=== PATIENT | male | born 1965 | race Caucasian/White ===

== ENCOUNTER 2024-09-28 22:32 | Inpatient (IN) | payer BC ==
[2024-09-28] MEDS ORDERED: NA CHLORIDE 0.9% 1,000 ML ONE (23:44)
[2024-09-29 00:16] LABS: Absolute Eosinophils 0.1 K/uL (0-0.5); Absolute Monocytes 1.2 K/uL (0.1-1.3); Absolute Neutrophil 7.1 K/uL (1.8-8.0); Basophils % 0.5 % (0-1.3); Eosinophils % 0.9 % (0-4.4); Hematocrit 48.7 % (39.6-49.0); Hemoglobin 16.6 g/dL (13.6-17.9); MCHC 34.1 g/dL (32.0-36.0); MCV 102.5 fL (80-100); Monocytes % 11.4 % (3.3-12.3); Neutrophils % 68.2 % (41.7-73.7); Nucleated Red Blood Cells % 0.2 % (0-0); Platelets 251 thou/uL (152-406); RBC Red Blood Cell Count 4.75 M/uL (4.33-5.43); Red Cell Distribution Width 13.5 % (12.1-15.2)
[2024-09-29 00:33] LABS: Albumin 3.5 g/dL (3.4-5.0); Albumin/Globulin Ratio 0.9 (1.1-1.8); Anion Gap 16.7 mEq/L (5.0-15.0); Bilirubin Direct 0.2 mg/dL (0-0.2); Bilirubin Indirect, Calculated 0.3 mg/dL (0.2-0.8); Bilirubin Total 0.5 mg/dL (0.2-1.0); Globulin 3.8 g/dL (2.3-3.5); Magnesium 2.3 mg/dL (1.6-2.4); Potassium 3.7 mEq/L (3.5-5.1); Protein, Total 7.3 g/dL (6.4-8.2); Troponin High Sensitivity 22.3 pg/mL (<58.9)
[2024-09-29] MEDS ORDERED: NA CHLORIDE 0.9% 2,000 ML ONE (00:58)
--- NOTE | 2024-09-29 02:08 | RAD REPORT ---
EXAM DESCRIPTION: XR CHEST 1 VIEW 09/29/2024 1:46 AM CDT CLINICAL HISTORY: 58 years, Male, Chest pain. COMPARISON: None. FINDINGS: 1 view of the chest (AP portable projection) was obtained. No prior films are available at this hero e for comparison. There is mild hyperinflation. Mediastinum: The cardiomediastinal silhouette appears normal in size and shape. Lungs: No areas of consolidations or masses are identified. Heart: The heart is in the upper normal size perhaps accentuated by the presence of bilateral pericar dial fat pad. Thoracic aorta: The thoracic aorta demonstrate to be mildly tortuous. Pulmonary vasculature: The pulmonary vasculature is normal in distribution. Pleura: The costophrenic angles demonstrate to be sharp. Osseous structures: The bony structures demonstrate to be within normal limits. Other: None. IMPRESSION: No acute cardiopulmonary disease seen. Mild hyperinflation. Electronically signed by: Jaime Silvestre MD 09/29/2024 01:58 AM CDT Due to temporary technical issues with the PACS/[employer] reporting system, reports are being joel d by the in-house radiologist without review as a courtesy to ensure prompt reporting the interpreting radiologist is fully responsible for the content of the report. Transcribed Date/Time: 09/29/2024 2:07 AM
--- NOTE | 2024-09-29 02:09 | EDPHYS ---
Physician Documentation [facility] Name: Garry Bond Age: 58 yrs Sex: Male : 1965 Arrival Date: 09/28/2024 Time: 22:32 Bed 5 Private MD: ED Physician Cristina Montgomery HPI: 09/29 00:44 This 58 yrs old White Male presents to ER via Ambulatory with complaints of Back Pain, sp3 Chest Pain, Weakness, Syncope, Fall Injury, Shortness Of Breath. 00:44 58-year-old male with history of hypertension, hyper lipidemia, alcoholism, chronic sp3 renal insufficiency with left nephrectomy performed due to renal cancer years ago now presents to the ED with chief complaint hypotension, generalized weakness and mild chest pain/shortness of breath. Symptoms have been occurring for several days and worsened today. Patient did have alcohol today which she states was "1 drink". He drinks 4-5 drinks a day. Patient being very vague with the symptoms. Review of systems negative for headache, trauma, vomiting, full syncope, fever, or any other signs or symptoms on ROS at this time.. Historical: - Allergies: 09/28 22:50 No Known Allergies; lg3 - Home Meds: 22:50 losartan 100 mg oral tablet [Active]; atorvastatin 10 mg oral tablet [Active]; lg3 fenofibrate oral [Active]; Farxiga 5 mg oral tablet daily [Active]; spironolactone Oral [Active]; metoprolol tartrate 50 mg Oral tablet [Active]; gabapentin 100 mg oral capsule [Active]; - PMHx: 22:50 Hypertensive disorder; Hypercholesterolemia; renal disease; lg3 - PSHx: 22:50 right nephrectomy; right knee; right shoulder; lg3 - Immunization history:: Adult Immunizations up to date. - Infectious Disease History:: Denies. - Social history:: Smoking status: Patient reports use of chewing tobacco. Patient uses alcohol, on a daily basis. patient/guardian reports chronic longstanding heavy alcohol consumption. ROS: 09/29 00:45 Constitutional: Negative for fever, chills, and weight loss, Eyes: Negative for injury, sp3 pain, redness, and discharge, Neck: Negative for injury, pain, and swelling, Respiratory: Negative for shortness of breath, cough, wheezing, and pleuritic chest pain, Back: Negative for injury and pain, Skin: Negative for injury, rash, and discoloration, All other systems are negative, Exam: 00:46 Constitutional: This is a well developed, well nourished patient who is awake, alert, sp3 and in no acute distress. Head/Face: Normocephalic, atraumatic. Eyes: Pupils equal round and reactive to light, extra-ocular motions intact. Lids and lashes normal. Conjunctiva and sclera are non-icteric and not injected. Cornea within normal limits. Periorbital areas with no swelling, redness, or edema. ENT: Nares patent. No nasal discharge, no septal abnormalities noted. External auditory canals are clear. Oropharynx with no redness, swelling, or masses, exudates, or evidence of obstruction, uvula midline. Mucous membranes moist. Neck: Trachea midline, no thyromegaly or masses palpated, and no cervical lymphadenopathy. Supple, full range of motion without nuchal rigidity, or vertebral point tenderness. No Meningismus. Chest/axilla: Normal chest wall appearance and motion. Nontender with no deformity. No lesions are appreciated. Respiratory: Lungs have equal breath sounds bilaterally, clear to auscultation and percussion. No rales, rhonchi or wheezes noted. No increased work of breathing, no retractions or nasal flaring. Abdomen/GI: Soft, non-tender, with normal bowel sounds. No distension or tympany. No guarding or rebound. No evidence of tenderness throughout. Back: No spinal tenderness. No costovertebral tenderness. Full range of motion. 00:52 Constitutional: The patient appears Patient intoxicated. Blood pressure remains in the sp3 50s to 60s systolic but he appears to be perfusing clinically in terms of capillary refill. Patient is not tachycardic he does not appear to be in shock. Vital Signs: 09/28 22:45 BP 62 / 51; Pulse 96; Resp 16 S; Temp 98.1(O); Pulse Ox 97% on R/A; Weight 90.72 kg lg3 (R); Height 5 ft. 9 in. (R); 23:16 BP 58 / 48; Pulse 92; Resp 18; Temp 98.2; Pulse Ox 95% ; Weight 90.72 kg; Height 5 ft. hw 9 in. ; 23:48 BP 57 / 43; Pulse 87; Resp 16 S; Pulse Ox 97% on R/A; lg3 09/29 01:06 BP 83 / 57; Pulse 83; Resp 18; Pulse Ox 98% ; vc1 01:41 BP 88 / 62; Pulse 84; Resp 20; Pulse Ox 100% ; vc1 04:55 BP 109 / 79; Pulse 90; Resp 18; Pulse Ox 96% ; vc1 09/28 23:16 Body Mass Index 29.53 (90.72 kg, 175.26 cm) hw MDM: 09/28 23:00 Medical Screening Exam initiated sp3 09/29 00:52 Data reviewed: vital signs, nurses notes, lab test result(s), EKG, radiologic studies. 3 ED course: 58-year-old male with single kidney with generalized weakness, hypotension and alcohol use. Family reports possible seizure/shaking episode but no history of seizures in the past. Differential diagnosis includes dehydration, renal failure, electrolyte imbalance, other intracranial pathology, ACS, among others. Workup include CT scan of the head, EKG, chest x-ray, labs, UA and general supportive care. Creatinine is elevated and patient is in acute on chronic renal failure. Patient's blood pressure remains low and we will consider pressors if indicated.. 02:08 ED course: Patient blood pressure now significantly improved at 90 systolic. Given the 3 situation of single kidney and acute renal failure with soft blood pressure, will place patient in the intensive care unit.. 09/28 23:00 Order name: Basic Metabolic Panel; Complete [facility]: 00:38 [facility] 09/28 23:00 Order name: CBC with Diff; Complete Time: 00:38 [facility] 09/28 23:00 Order name: LFT's; Complete Time: 00:38 [facility] 09/28 23:00 Order name: Magnesium; Complete Time: 00:38 [facility] 09/28 23:00 Order name: NT PRO-BNP; Complete Time: 00:38 [facility] 09/28 23:00 Order name: PT-INR [facility] 09/28 23:00 Order name: Troponin HS; Complete Time: 00:38 [facility] 09/28 23:24 Order name: Lipase; Complete Time: 00:38 [facility] 09/28 23:24 Order name: Lactate w/ 2H reflex if indic.; Complete Time: 00:38 [facility] 09/28 23:24 Order name: Blood Culture Adult (2) sp3 09/29 00:37 Order name: Ghost Lactate-NO COLLECT Timer EDMS 09/29 02:56 Order name: Lactate w/ 2H reflex if indic. EDMS 09/29 02:56 Order name: Magnesium EDMS 09/29 02:56 Order name: Phosphorus EDMS 09/29 02:56 Order name: Urinalysis w/ reflexes EDMS 09/29 02:56 Order name: Basic Metabolic Panel EDMS 09/29 02:56 Order name: Basic Metabolic Panel EDMS 09/29 02:56 Order name: CBC with Automated Diff EDMS 09/29 02:56 Order name: CBC with Automated Diff EDMS 09/29 02:56 Order name: Lipid Profile EDMS 09/29 02:56 Order name: Lipid Profile EDMS 09/29 04:55 Order name: Lactate Sepsis 2 HR Follow-up EDMS 09/28 23:51 Order name: Chest Single View EDMS 09/29 00:54 Order name: CT Head Brain wo Cont sp3 09/29 00:55 Order name: CT Chest Abdomen Pelvis W/O Contrast sp3 09/29 02:57 Order name: Renal Ultrasound-Complete EDMS 09/28 23:00 Order name: EKG; Complete Time: 23:52 sp3 09/28 23:00 Order name: Cardiac monitoring; Complete Time: 23:32 sp3 09/28 23:00 Order name: EKG - Nurse/Tech; Complete Time: 23:32 sp3 09/28 23:00 Order name: IV Saline Lock; Complete Time: 23:32 sp3 09/28 23:00 Order name: Labs collected and sent; Complete Time: 23:32 sp3 09/28 23:00 Order name: O2 Per Protocol; Complete Time: 23:32 sp3 09/28 23:00 Order name: O2 Sat Monitoring; Complete Time: 23:32 sp3 Administered Medications: 09/28 23:51 Drug: NS 0.9% IV 1000 ml IV at 1 bolus Per protocol; to be given as a bolus over 60 lg3 minutes Route: IV; Rate: 1 bolus; Site: right antecubital; 09/29 01:00 Follow up: IV Status: Completed infusion; IV Intake: 1000ml vc1 01:05 Drug: NS 0.9% IV (20 ml/kg) 20 ml/kg IV at 2 bolus once; to be given as a bolus over 90 vc1 minutes Route: IV; Rate: 2 bolus; Site: right antecubital; 02:30 Follow up: IV Status: Completed infusion; IV Intake: 2000ml vc1 03:46 Drug: Banana Bag - (Multivitamin IV 1 amp, NS 0.9% IV 1000 ml, Thiamine IV 100 mg, vc1 foLIC Acid IVPB 1 mg) IV at calculated rate once Route: IV; Rate: bolus; Site: right antecubital; 05:05 Follow up: IV Status: Completed infusion; IV Intake: 1000ml vc1 Disposition Summary: 09/29/24 02:08 Hospitalization Ordered Notes: Hospitalization Status: Inpatient Admission sp3 Location: Intensive Care Unit sp3 Condition: Stable sp3 Problem: an acute exacerbation sp3 Symptoms: have worsened sp3 Bed/Room Type: Standard sp3 Provider: Juan Hunt(09/29/24 02:51) sp3 Room Assignment: -(09/29/24 04:29) cg Diagnosis - Acute renal failure and single kidney patient, dehydration, lactic acidosis, sp3 generalized weakness, near syncope Forms: - Medication Reconciliation Form sp3 - SBAR form sp3 - Leadership Thank You Letter sp3 Critical care time excluding procedures: 02:12 Critical care time: Bedside Care: 20 minutes, Consultation: 10 minutes, Family sp3 Intervention: 10 minutes. Total time: 40 minutes Signatures: Dispatcher [employer] Kaylan Post RN RN cg Mckayla Persaud RN RN lg3 Cristina Montgomery MD MD sp3 Xuan Pathak RN RN vc1 Corrections: (The following items were deleted from the chart) 09/28 22:55 22:50 Home Meds: ESRD; lg3 lg3 22:55 22:50 PMHx: Hypertensive disorder; lg3 lg3 09/29 00:29 09/28 23:52 Chest Single View+RAD.RAD.BRZ ordered. [facility] EDMS 09/29 02:51 02:08 Prince Anahi sp3 sp3 04:29 02:08 sp3 cg
--- NOTE | 2024-09-29 02:09 | ER ---
Nurse's Notes [facility] Name: Garry Bond Age: 58 yrs Sex: Male : 1965 Arrival Date: 09/28/2024 Time: 22:32 Bed 5 Private MD: Diagnosis: Acute renal failure and single kidney patient, dehydration, lactic acidosis, generalized weakness, near syncope Presentation: 09/28 22:45 Chief complaint: Patient states: center CP radiating to back starting at dinner. when lg3 trying to stand up he acted like he was going to pass out. nausea and vomiting X3 days. urinating blood Spouse and/or significant other states: history of ETOH abuse. daily intake. nausea/vomiting X3 days. blood in urine for unknown amount of time. at dinner pt complaint of center CP radiating to back with headache. Coronavirus screen: At this time, unable to obtain information related to travel outside the [place] Ebola Screen: No symptoms or risks identified at this time. Initial Sepsis Screen: Does the patient meet any 2 criteria? No. Patient's initial sepsis screen is negative. Does the patient have a suspected source of infection? No. Patient's initial sepsis screen is negative. Risk Assessment: Do you want to hurt yourself or someone else? Patient reports no desire to harm self or others. Onset of symptoms is unknown. 22:45 Method Of Arrival: Ambulatory lg3 22:45 Acuity: VESTA 2 lg3 Triage Assessment: 22:50 General: Appears in no apparent distress. distressed, Behavior is calm, cooperative, lg3 flat, Smells of alcohol. Pain: Complains of pain in head and chest. EENT: No deficits noted. No signs and/or symptoms were reported regarding the EENT system. Neuro: [place]o Agitation-Sedation Scale (RASS): -1 Drowsy Level of Consciousness is awake, confused, Oriented to person, place, time, situation, Reports dizziness, headache weakness. Cardiovascular: No deficits noted. Reports chest pain, Heart tones S1 S2 present Capillary refill < 3 seconds Clubbing of nail beds is absent JVD is absent Patient's skin is warm and dry. Rhythm is sinus rhythm. Respiratory: No deficits noted. Airway is patent Respiratory effort is even, unlabored, Respiratory pattern is regular, symmetrical. GI: Abdomen is round non-distended, obese. : Reports blood in urine. Derm: No deficits noted. Skin is intact, is healthy with good turgor, Skin is dry, Skin is normal, Skin temperature is warm. Musculoskeletal: Circulation, motion, and sensation intact. Range of motion: intact in all extremities. Historical: - Allergies: 22:50 No Known Allergies; lg3 - Home Meds: 22:50 losartan 100 mg oral tablet [Active]; atorvastatin 10 mg oral tablet [Active]; lg3 fenofibrate oral [Active]; Farxiga 5 mg oral tablet daily [Active]; spironolactone Oral [Active]; metoprolol tartrate 50 mg Oral tablet [Active]; gabapentin 100 mg oral capsule [Active]; - PMHx: 22:50 Hypertensive disorder; Hypercholesterolemia; renal disease; lg3 - PSHx: 22:50 right nephrectomy; right knee; right shoulder; lg3 - Immunization history:: Adult Immunizations up to date. - Infectious Disease History:: Denies. - Social history:: Smoking status: Patient reports use of chewing tobacco. Patient uses alcohol, on a daily basis. patient/guardian reports chronic longstanding heavy alcohol consumption. Screenin/12 01:00 Clinical [place] Withdrawal Assessment for Alcohol, revised (WA-Ar):. [facility] ED vc1 Fall Risk Assessment (Adult) History of falling in the last 3 months, including since admission No falls in past 3 months (0 pts) Confusion or Disorientation Yes (5 pts) Intoxicated or Sedated Yes (3 pts) Impaired Gait Yes (1 pt) Mobility Assist Device Used No (0 pt) Altered Elimination Yes (1 pt) Score/Fall Risk Level 3 or more points = High Risk Oriented to surroundings, Maintained a safe environment, Educated pt \T\ family on fall prevention, incl call for assistance when getting out of bed, Hourly rounding (assess needs \T\ fall precautionary measures) done. Abuse screen: Denies threats or abuse. Nutritional screening: No deficits noted. Tuberculosis screening: No symptoms or risk factors identified. 01:00 Clinical [place] Withdrawal Assessment for Alcohol, revised (CIWA-Ar): vc1 Nausea/Vomitin - No nausea or vomiting Headache: 0 - Not present Paroxysmal Sweats: 1 - Barely perceptible sweating, palms moist Anxiety: 4 - Moderately anxious, guarded Agitation: 1 - Somewhat more than normal activity Tremor: 1 - Not visible, but can be felt at fingertips Auditory Disturbances: 0 - Not present Visual Disturbances: 0 - Not present Tactile Disturbances: 0 - None Orientation and Clouding of Sensorium: 0 - Oriented and can do serial additions Total Score: < 10 Very mild withdrawal. Assessment: 01:00 General: Appears in no apparent distress. uncomfortable, well groomed, well developed, vc1 Behavior is cooperative. Pain: Denies pain. Neuro: Level of Consciousness is awake, alert, obeys commands, Oriented to person, place, time, situation, Appropriate for age. Cardiovascular: Capillary refill < 3 seconds Patient's skin is warm and dry. Respiratory: Airway is patent Respiratory effort is even, unlabored, Respiratory pattern is regular, symmetrical, Breath sounds are clear bilaterally. GI: No deficits noted. No signs and/or symptoms were reported involving the gastrointestinal system. : No deficits noted. No signs and/or symptoms were reported regarding the genitourinary system. EENT: No deficits noted. No signs and/or symptoms were reported regarding the EENT system. Derm: Skin is intact, is healthy with good turgor, Skin is dry, Skin is normal, Skin temperature is warm. Musculoskeletal: No deficits noted. No signs and/or symptoms reported regarding the musculoskeletal system. 01:42 Reassessment: Patient appears in no apparent distress at this time. No changes from vc1 previously documented assessment. Patient and/or family updated on plan of care and expected duration. Pain level reassessed. 05:05 Reassessment: Patient appears in no apparent distress at this time. No changes from vc1 previously documented assessment. Patient and/or family updated on plan of care and expected duration. Pain level reassessed. Vital Signs: 09/28 22:45 BP 62 / 51; Pulse 96; Resp 16 S; Temp 98.1(O); Pulse Ox 97% on R/A; Weight 90.72 kg lg3 (R); Height 5 ft. 9 in. (R); 23:16 BP 58 / 48; Pulse 92; Resp 18; Temp 98.2; Pulse Ox 95% ; Weight 90.72 kg; Height 5 ft. hw 9 in. ; 23:48 BP 57 / 43; Pulse 87; Resp 16 S; Pulse Ox 97% on R/A; lg3 09/29 01:06 BP 83 / 57; Pulse 83; Resp 18; Pulse Ox 98% ; vc1 01:41 BP 88 / 62; Pulse 84; Resp 20; Pulse Ox 100% ; vc1 04:55 BP 109 / 79; Pulse 90; Resp 18; Pulse Ox 96% ; vc1 09/28 23:16 Body Mass Index 29.53 (90.72 kg, 175.26 cm) ED Course: 09/28 22:34 Patient arrived in ED. jj6 22:49 Triage completed. lg3 22:50 Arm band placed on right wrist. lg3 22:59 Cristina Montgomery MD is Attending Physician. sp3 23:16 Inserted saline lock: 20 gauge in right antecubital area, using aseptic technique. hw Blood collected. Flushed with 10 mL NS. 23:16 EKG done, by ED staff, reviewed by Cristina Montgomery MD. 09/29 00:12 Chest Single View In Process Unspecified. EDMS 01:00 Report received from SUKHWINDER Block. vc1 01:00 Patient has correct armband on for positive identification. Bed in low position. Side vc1 rails up X2. Adult w/ patient. discount clerk on. Pulse ox on. NIBP on. Placed in trendelenberg. 01:00 Provided Education on: plan of care. vc1 01:41 CT Head Brain wo Cont In Process Unspecified. EDMS 01:41 CT Chest Abdomen Pelvis W/O Contrast In Process Unspecified. EDMS 01:41 Xuan Pathak, SUKHWINDER is Primary Nurse. vc1 02:07 Prince Christian MD is Hospitalizing Provider. sp3 02:51 Hospitalizing Provider role handed off by Prince Christian MD sp3 02:51 Juan Hunt MD is Hospitalizing Provider. sp3 05:41 No provider procedures requiring assistance completed. Patient admitted, IV remains in vc1 place. Administered Medications: 09/28 23:51 Drug: NS 0.9% IV 1000 ml IV at 1 bolus Per protocol; to be given as a bolus over 60 lg3 minutes Route: IV; Rate: 1 bolus; Site: right antecubital; 09/29 01:00 Follow up: IV Status: Completed infusion; IV Intake: 1000ml vc1 01:05 Drug: NS 0.9% IV (20 ml/kg) 20 ml/kg IV at 2 bolus once; to be given as a bolus over 90 vc1 minutes Route: IV; Rate: 2 bolus; Site: right antecubital; 02:30 Follow up: IV Status: Completed infusion; IV Intake: 2000ml vc1 03:46 Drug: Banana Bag - (Multivitamin IV 1 amp, NS 0.9% IV 1000 ml, Thiamine IV 100 mg, vc1 foLIC Acid IVPB 1 mg) IV at calculated rate once Route: IV; Rate: bolus; Site: right antecubital; 05:05 Follow up: IV Status: Completed infusion; IV Intake: 1000ml vc1 Medication: 01:25 VIS not applicable for this client. vc1 Intake: 01:00 IV: 1000ml; Total: 1000ml. vc1 02:30 IV: 2000ml; Total: 3000ml. vc1 05:05 IV: 1000ml; Total: 4000ml. vc1 Outcome: 02:08 Decision to Hospitalize by Provider. sp3 05:41 Admitted to ICU accompanied by nurse, accompanied by tech, family with patient, via vc1 stretcher, room -5, on monitor, 05:41 Condition: stable 05:41 Instructed on the need for admit, 05:43 Patient left the ED. vc1 Signatures: Dispatcher [employer] EDMS Mckayla Persaud RN RN lg3 Cristina Montgomery MD MD sp3 Shani Harmon6 Xuan Pathak RN RN vc1 [address] Corrections: (The following items were deleted from the chart) 09/28 22:55 22:50 Home Meds: ESRD; lg3 lg3 22:55 22:50 PMHx: Hypertensive disorder; lg3 lg3 23:01 22:45 Chief complaint: Patient states: center CP radiating to back starting at dinner. lg3 when trying to stand up he acted like he was going to pass out. nausea and vomiting X3 days. urinating blood lg3
[2024-09-29] MEDS ORDERED: ONDANSETRON 4 MG/2 ML VIAL IV PRN (02:52)
[2024-09-29] MEDS ORDERED: FOLIC ACID 5 MG/ML VIAL ONE (03:39)
[2024-09-29] MEDS ORDERED: MULTIVITAMINS 10 ML VIAL (INJ) IV ONE (03:39)
[2024-09-29] MEDS ORDERED: THIAMINE 200 MG/2 ML INJ ONE (03:39)
[2024-09-29] MEDS ORDERED: NA CHLORIDE 0.9% 1,000 ML ONE (03:40)
[2024-09-29 04:45] LABS: PT Prothrombin Time 10.8 SECONDS (10-13.0); Protime INR 0.94
[2024-09-29 04:51] LABS: Magnesium 1.8 mg/dL (1.6-2.4); Phosphorus 3.1 mg/dL (2.5-4.9)
[2024-09-29] MEDS: NA CHLORIDE 0.9% 1,000 ML IV SCH (06:06)
[2024-09-29 06:17] VITALS: BMI 29.5
--- NOTE | 2024-09-29 06:42 | RAD REPORT ---
EXAM DESCRIPTION: CT of the head without contrast CLINICAL HISTORY: WEAKNESS COMPARISON: None available TECHNIQUE: Axial CT of the head obtained from the skull apex to the skull base without contrast. This exam was performed according to our departmental dose-optimization program, which includes automated exposure control, adjustment of the mA and/or kV according to patient size and/or use of it erative reconstruction technique. FINDINGS: No acute intracranial hemorrhage identified. No mass, mass effect, midline shift, or abnormal extra-a xial fluid collection. No CT evidence of acute ischemic change identified, however, MRI is more sensitive in the assessment of acute ischemia. Ventricular system and sulcal spaces are normal in s ize. [place] cisterna magna is incidentally noted. Basilar cisterns are patent. Intracranial atherosclerosis. Visualized orbits and globes show no acute abnormality. No skull fracture identified. The visuali zed paranasal sinuses and the mastoid air cells are relatively well aerated. IMPRESSION: No acute intracranial abnormality on noncontrast CT. Electronically signed by: Brittny Holland MD 09/29/2024 04:02 AM T Due to temporary technical issues with the PACS/[employer] reporting system, reports are being joel d by the in-house radiologist without review as a courtesy to ensure prompt reporting the interpreting radiologist is fully responsible for the content of the report. Transcribed Date/Time: 09/29/2024 6:42 AM
--- NOTE | 2024-09-29 06:43 | RAD REPORT ---
CLINICAL HISTORY: Weakness syncope hypotension. COMPARISON: XR Chest 09/28/2024. TECHNIQUE: CT CHEST ABDOMEN PELVIS WITHOUT IV CONTRAST on 09/29/2024 12:55 AM CDT This exam was performed according to our departmental dose-optimization program, which includes autom ated exposure control, adjustment of the mA and/or kV according to patient size and/or use of iterative reconstruction technique. FINDINGS: Chest: The heart is normal in size. There is no pericardial effusion. Intrathoracic lymph nodes are n ot enlarged. There is no pleural effusion, pleural thickening or pneumothorax. Central airways are patent. Lungs a re clear with no consolidation, mass or interstitial lung disease. Abdomen: The liver is normal in appearance. There is no biliary dilatation. Gallbladder is normal in appearance. The pancreas and spleen are normal in appearance. Left adrenal gland and kidney are normal. Right adrenal gland and kidney are absent. Abdominal aorta is normal in course and caliber without aneurysm. There is no free air. There is no r etroperitoneal adenopathy. Pelvis: There is minimal left colonic diverticulosis. Urinary bladder is unremarkable. There is no fr ee fluid. Appendix is normal. Skeleton: There are no acute osseous findings. No suspicious bony lesions. IMPRESSION: No acute process. Electronically signed by: Shaka Castellon MD 09/29/2024 04:32 AM CDT RP Due to temporary technical issues with the PACS/[employer] reporting system, reports are being joel d by the in-house radiologist without review as a courtesy to ensure prompt reporting the interpreting radiologist is fully responsible for the content of the report. Transcribed Date/Time: 09/29/2024 6:42 AM
[2024-09-29 08:00] LABS: Absolute Eosinophils 0.1 K/uL (0-0.5); Absolute Monocytes 0.5 K/uL (0.1-1.3); Absolute Neutrophil 3.4 K/uL (1.8-8.0); Basophils % 0.7 % (0-1.3); Eosinophils % 1.2 % (0-4.4); Hematocrit 43.4 % (39.6-49.0); Hemoglobin 14.9 g/dL (13.6-17.9); Lymphocytes % 19.9 % (15.3-44.8); MCH 35.3 pg (27.0-35.0); MCHC 34.3 g/dL (32.0-36.0); MCV 102.9 fL (80-100); MPV 7.5 fL (7.6-11.3); Monocytes % 10.8 % (3.3-12.3); Neutrophils % 67.4 % (41.7-73.7); Nucleated Red Blood Cells % 0.1 % (0-0); Platelets 151 thou/uL (152-406); RBC Red Blood Cell Count 4.22 M/uL (4.33-5.43); Red Cell Distribution Width 13.6 % (12.1-15.2)
--- NOTE | 2024-09-29 08:17 | RAD REPORT ---
EXAMINATION: US RENAL CLINICAL INDICATION: Acute renal insufficiency TECHNIQUE: Real-time ultrasonography of the kidneys performed. COMPARISON: CT abdomen September 29, 2024 FINDINGS: Right nephrectomy 2.2 cm cystic mass extends off of the lower pole left kidney. It contains low level echoes. The left kidney measures 11 cm with a normal echotexture. No hydronephrosis No gross abnormality bladder. IMPRESSION: Right nephrectomy 2.2 cm cystic mass left kidney containing low level echoes likely a benign complex cyst. Follow-up radha in 3 months recommended for reevaluation
[2024-09-29 08:20] LABS: Albumin 2.7 g/dL (3.4-5.0); Albumin/Globulin Ratio 0.9 (1.1-1.8); Bilirubin Total 0.5 mg/dL (0.2-1.0); Globulin 3.1 g/dL (2.3-3.5); Protein, Total 5.8 g/dL (6.4-8.2)
[2024-09-29] MEDS: HEPARIN 5000 UNIT/ML 1 ML VIAL SQ SCH (08:41)
[2024-09-29] MEDS ORDERED: GABAPENTIN 100 MG CAP PO PRN (08:52)
[2024-09-29] MEDS: METOPROLOL TAR 50 MG TAB PO SCH (09:00)
[2024-09-29 14:01] LABS: UR PROTEIN 33.6 mg/dL (<11.9)
[2024-09-29 14:02] LABS: Specific Gravity 1.011 (1.005-1.030); Sqamous Epithelial None Seen /HPF (None Seen); Urine Bacteria None Seen /HPF (<20); Urine Bilirubin NEGATIVE (Negative); Urine Blood 1+ (Negative); Urine Clarity Clear (Clear); Urine Color Light-Yellow (Yellow); Urine Culture Reflex Order NOT NEEDED; Urine Glucose 3+ (Negative); Urine Ketones NEGATIVE (Negative); Urine Micro Reflex YN NO BILL MICROSCOPIC; Urine Mucus Slight /HPF (None Seen); Urine Nitrite NEGATIVE (Negative); Urine Protein NEGATIVE (Negative); Urine RBC <5 /HPF (None Seen); Urine Urobilinogen Normal (Normal); Urine WBC <5 /HPF (<5); Urine pH 5.5 (5.0-7.0)
--- NOTE | 2024-09-29 16:10 | P.HP ---
Patient History Date of Service: 09/29/24 Reason for admission: DEHYDRATION, SYNCOPE History of Present Illness: GEORGE HAS HAD RENAL CANCER WITH REMOVAL OR R KIDNEY A FEW YEARS AGO. HE DRINKS HEAVY BURBON WITH COKE DAILY. HE HAS HAD NAUSEA, VOMITING AND DIARRHEA FOR 4 DAYS. HE HAD SYNCOPE AT HOME AND BROUGHT HIM HERE. BP WAS IN 50S ON ADMISSION. HE WAS GIVEN 3 LT OF FLUID IN ER AND THEN 100 ML PER HOUR. HE IS STABLE. HE ALREADY WANTS TO GO HOME BUT HE CAN'T. I HAD LONG DISCUSSION ABOUT ALCOHOL ABUSE BUT HE DOES NOT WANT TO QUIT. Allergies No Known Allergies Allergy (Unverified 09/29/24 06:02) Home medications list reviewed: Yes Home Medications: Atorvastatin Calcium [Lipitor] 10 mg PO BEDTIME 09/29/24 Dapagliflozin Propanediol [Farxiga] 5 mg PO DAILY 09/29/24 Fenofibrate,Micronized [Fenofibrate] 67 mg PO DAILY 09/29/24 Gabapentin 100 mg PO TID PRN 09/29/24 Losartan Potassium 100 mg PO DAILY 09/29/24 Metoprolol Tartrate [Lopressor] 50 mg PO BID 09/29/24 Spironolactone [Aldactone] 25 mg PO DAILY 09/29/24 - Past Medical/Surgical History Has patient received pneumonia vaccine in the past: No Diabetic: No -: hypertension -: one kidney -: right kidney removed cancer 2020 -: kidney removed 2020 -: right shoulder surgery -: right knee surgery - Family History Mother -: Cancer Father -: Cancer Notes: dementia - Social History Smoking Status: Never smoker Alcohol use: Yes CD- Drugs: No Caffeine use: Yes Place of Residence: Home Review of Systems 10-point ROS is otherwise unremarkable Physical Examination - Vital Signs Temperature: 97.5 F Blood Pressure: 107/72 Pulse: 99 Respirations: 18 Pulse Ox (%): 96 - Physical Exam General: Mild distress HEENT: Atraumatic, PERRLA, Mucous membr. moist/pink, EOMI, Sclerae nonicteric Neck: Supple, 2+ carotid pulse no bruit, No LAD, Without JVD or thyroid abnormality Respiratory: Clear to auscultation bilaterally, Normal air movement Cardiovascular: Regular rate/rhythm, Normal S1 S2 Gastrointestinal: Normal bowel sounds, No tenderness Musculoskeletal: No tenderness Integumentary: No rashes Neurological: Normal gait, Normal speech, Normal strength at 5/5 x4 extr, Normal tone, Normal affect Lymphatics: No axilla or inguinal lymphadenopathy - Studies Laboratory Data (last 24 hrs) 09/28/24 09/28/24 23:33 23:33 WBC 10.30 Hgb 16.6 Hct 48.7 Plt Count 251 Sodium 130 L Potassium 3.7 BUN 47 H Creatinine 4.89 H Glucose 104 Magnesium 2.3 Total Bilirubin 0.5 AST 30 ALT 23 Alkaline Phosphatase 63 Lipase 125 H Assessment and Plan - Problems (Diagnosis) (1) Acute renal insufficiency Current Visit: Yes Status: Acute Plan: HE HAS ONE KIDNEY THAT IS L SIDE. HE DRINKS HEAVY IN ADDITION TO RECENT VIRAL GASTROENTERITIS. RENAL FUNCTION SHOULD IMPROVE. HE MAY GO HOME IN TWO DAYS. IV CONTINUE. (2) History of renal cell cancer Current Visit: Yes Status: Chronic (3) CKD stage 3a, GFR 45-59 ml/min Current Visit: Yes Status: Chronic Plan: BASELINE ABOUT 1.5 AT OFFICE. FOLLOWING IS HIS HISTORY. 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 GARCIA NEG EXCEPT RENAL CELL CANCER. Hide 2020 Anemia [D64.9] 2020 Elevated serum creatinine [R79.89] 2020 Elevated ferritin [R79.89] 2020 Renal mass [N28.89] r side kidney removed. r side kidney removed. 2020 Renal cell cancer [C64.9 0.4] LIVER METS RULED OUT BY DR. THOMPSON. LIVER METS RULED OUT BY DR. THOMPSON. 2020 Varicose vein of leg [I83.90] 2022 Edema [R60.9] AMLODIPINE AMLODIPINE 2022 CKD (chronic kidney disease) stage 3, GFR 30-59 ml/min [N18.30 0.1] baseline 1.53 baseline 1.[address] [R93.1] 90th percentile 90th percentile (4) Alcohol abuse Current Visit: Yes Status: Acute Plan: HE DOES NOT WANT TO QUIT. I AND URGED HIM AGAIN TO GET HELP. - Advance Directives Does patient have a Living Will: No Does patient have a Durable POA for Healthcare: No
[2024-09-29] MEDS: SODIUM BICARB 325 MG TAB PO SCH (20:26)
--- NOTE | 2024-09-30 02:32 | CON ---
Date of Consultation: 09/29/2024 Chief Complaint: Acute kidney injury. 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 The patient previously underwent a solitary kidney due to previous nephrectomy, and nephrectomy was done for renal cell carcinoma. The patient has had close followup with urologist. On admission on September 28, creatinine level was up to 4.89 and today is 3.601, BUN is 39. There is metabolic acidosis present, although anion gap is 13 and carbon dioxide 16, chloride 111. Patient is admitted to ICU for severe hypotension and syncope. The patient was found to have volume depletion and was started on an aggressive hydration, and he received 3 L of normal saline, both in the emergen cy room. The patient has history of renal cell carcinoma and underwent right nephrectomy 2 years ago , and he drinks heavily. He has history of heavy alcohol. He denies nausea, vomiting, abdominal irma n, diarrhea, and although currently this admission he was complaining of nausea, vomiting, and diarrh ea, denies melena, hematemesis. Currently, few days ago, he had gross hematuria without pain. He burns d painless hematuria. Review of Systems: Constitutional: Denies fevers, chills. Eyes: Denies vision changes. Ears, Nose, Mouth, and Throat: Denies sore throat, earache. Respiratory: Denies PND, orthopnea. Cardiovascular: Denies syncope. GI: Denies melena or hematemesis. : Denies dysuria or hematuria. All other systems reviewed and all are negative. Past Medical History: Hypertension, solitary kidney, right kidney removed due to cancer in 2020, rig ht shoulder surgery, right knee surgery, chronic kidney disease stage 3. Family History: Mother with thyroid cancer and dementia. Social History: Never smoker. Denies alcohol. Denies drugs. Alcohol, he has history of heavy alco hol drinking. Physical Examination: Vital Signs: Blood pressure 117/72, heart rate 96, respiratory rate 18, SpO2 96%, and temperature 97 .5. General: The patient is not in acute distress. Eyes: Anicteric sclerae. EOMI. Ears, Nose, Mouth, and Throat: Oral mucosa moist. No pallor. Neck: Supple. No bruits. Lungs: Diminished breath sound at bases. Heart: S1, S2. Abdomen: Soft, benign. Extremities: No edema. Laboratory Data: WBC 10.3, hemoglobin 16.6, hematocrit is 48.7, platelet count 261,000. Sodium ____ . nephrostomy for renal cell carcinoma. According to the patient, he said he developed elmer turia. He denies history of kidney stones. Workup done in the emergency room did not show obstructi ve uropathy. The patient has underlying chronic kidney disease stage 3a, baseline creatinine 1.5. H e has severe acute kidney injury due to ATN. Monitor urine output and avoid nephrotoxic medication. 1. Hypotension, a likely contributor to prerenal azotemia and acute tubular necrosis. 2. Elevated triglycerides, high cholesterol. Patient was treated with medication for cholesterol. CK level to rule out rhabdomyolysis. 3. Hypertension. Monitor blood pressure closely and adjust medication according to blood pressure re sults. . MILAGRO/PARMINDERL Voice ID: [id number] Report ID: [id number]
[2024-09-30 07:22] LABS: Absolute Eosinophils 0.1 K/uL (0-0.5); Absolute Lymphocytes (CBC) 0.9 K/uL (0.7-4.9); Absolute Monocytes 0.5 K/uL (0.1-1.3); Absolute Neutrophil 4.1 K/uL (1.8-8.0); Basophils % 0.4 % (0-1.3); Hematocrit 45.4 % (39.6-49.0); Hemoglobin 15.6 g/dL (13.6-17.9); Lymphocytes % 16.7 % (15.3-44.8); MCH 35.7 pg (27.0-35.0); MCHC 34.4 g/dL (32.0-36.0); MCV 103.8 fL (80-100); MPV 7.6 fL (7.6-11.3); Monocytes % 9.1 % (3.3-12.3); Neutrophils % 72.8 % (41.7-73.7); Nucleated Red Blood Cells % 0.1 % (0-0); Platelets 149 thou/uL (152-406); RBC Red Blood Cell Count 4.37 M/uL (4.33-5.43); Red Cell Distribution Width 13.4 % (12.1-15.2)
[2024-09-30 07:40] LABS: Anion Gap 10.2 mEq/L (5.0-15.0); Potassium 4.2 mEq/L (3.5-5.1)
[2024-09-30] MEDS: THIAMINE 200 MG/2 ML INJ IVP SCH (08:20)
[2024-09-30 08:22] VITALS: BP 130/78
[2024-09-30 08:46] VITALS: TEMP 97.7
[2024-09-30 10:27] VITALS: O2SAT 99
[2024-09-30 11:24] LABS: C.diff Antigen/Toxin Ag neg : Tox neg (NEG : NEG); CDIFF INTERNAL NEG CONTROL White Background (WHITE BKGD); STOOL CONSISTENCY Liquid/Semi-Solid
--- NOTE | 2024-09-30 19:15 | P.DS ---
Admission Date: 09/29/24 Discharge Date: 09/30/24 Disposition: ROUTINE DISCHARGE Discharge Condition: FAIR Reason for Admission: DEHYDRATION, SYNCOPE - Problems (1) Acute renal insufficiency Status: Acute (2) History of renal cell cancer Status: Chronic (3) CKD stage 3a, GFR 45-59 ml/min Status: Chronic (4) Alcohol abuse Status: Acute Brief History of Present Illness: GEORGE HAS HAD RENAL CANCER WITH REMOVAL OR R KIDNEY A FEW YEARS AGO. HE DRINKS HEAVY BURBON WITH COKE DAILY. HE HAS HAD NAUSEA, VOMITING AND DIARRHEA FOR 4 DAYS. HE HAD SYNCOPE AT HOME AND BROUGHT HIM HERE. BP WAS IN 50S ON ADMISSION. HE WAS GIVEN 3 LT OF FLUID IN ER AND THEN 100 ML PER HOUR. HE IS STABLE. HE ALREADY WANTS TO GO HOME BUT HE CAN'T. I HAD LONG DISCUSSION ABOUT ALCOHOL ABUSE BUT HE DOES NOT WANT TO QUIT. Hospital Course: GEORGE HAS HAD RENAL CANCER WITH NEPHRECTOMY ON R SIDE YEARS AGO. HE GOT ILL WITH VOMITING AND DIARRHEA, KEPT ON CHECKING BP MEDS WITHOUT CHECKING BP, HE COMES WITH ACUTE RENAL INSUFFICIENCY. HE HAS IMPROVED DOWN TO 2.2 . HIS BASELINE CREA IS ABOUT 1.53 TO 2. HE IS STABLE TO GO HOME. HE WANTS TO LEAVE. HIS PROMISES THAT HE WILL DRINK 90 OZ OF WATER WITH LEMON DAILY. HE WILL TAPER AND QUIT HEAVY ALCOHOL HE LOVES. IN THE PAST HE HAS REFUSED TO DO SO. HE WILL FU IN OFFICE IN ONE WEEK. STOOL SAMPLE REPORTS ARE PENDING. Vital Signs/Physical Exam: Temp Pulse Resp BP Pulse Ox 97.7 F 69 20 130/78 99 09/30/24 08:00 09/30/24 08:20 09/30/24 08:00 09/30/24 08:20 09/30/24 08:00 Laboratory Data at Discharge: WBC 5.60 thou/uL (4.3-10.9) 09/30/24 07:03 Hgb 15.6 g/dL (13.6-17.9) 09/30/24 07:03 Hct 45.4 % (39.6-49.0) 09/30/24 07:03 Plt Count 149 thou/uL (152-406) L 09/30/24 07:03 PT 10.8 SECONDS (10-13.0) 09/29/24 04:14 INR 0.94 09/29/24 04:14 Sodium 138 mEq/L (136-145) 09/30/24 07:03 Potassium 4.2 mEq/L (3.5-5.1) 09/30/24 07:03 BUN 29 mg/dL (7-18) H 09/30/24 07:03 Creatinine 2.22 mg/dL (0.70-1.30) H 09/30/24 07:03 Glucose 86 mg/dL (74-106) 09/30/24 07:03 Phosphorus 3.1 mg/dL (2.5-4.9) 09/29/24 04:14 Magnesium 1.8 mg/dL (1.6-2.4) 09/29/24 04:14 Total Bilirubin 0.5 mg/dL (0.2-1.0) 09/29/24 07:44 AST 23 U/L (15-37) 09/29/24 07:44 ALT 19 U/L (16-61) 09/29/24 07:44 Alkaline Phosphatase 49 U/L (45-117) D 09/29/24 07:44 Triglycerides 196 mg/dL (<150) H 09/30/24 07:03 Cholesterol 116 mg/dL (<200) 09/30/24 07:03 HDL Cholesterol 46 mg/dL (40-60) 09/30/24 07:03 Cholesterol/HDL Ratio 2.52 09/30/24 07:03 Lipase 125 U/L (13-75) H 09/28/24 23:33 Home Medications: Atorvastatin Calcium [Lipitor*] 10 mg PO BEDTIME 09/29/24 Fenofibrate,Micronized [Fenofibrate] 67 mg PO DAILY 09/29/24 Gabapentin 100 mg PO TID PRN 09/29/24 Metoprolol Tartrate [Lopressor] 50 mg PO BID 09/29/24 Followup: Juan Hunt MD [Primary Care Provider] - 1-2 Weeks (Call for appointment.)
--- NOTE | 2024-10-01 10:54 | EKG ---
Test Date: 2024-09-28 Test Time: 22:55:08 Photoresist Printer: KARLOS MEASUREMENT RESULTS: Intervals: Rate: 94 AL: 174 QRSD: 82 QT: 354 QTc: 442 [place]: P: 43 AL: 174 QRS: 31 T: 59 INTERPRETIVE STATEMENTS: Normal sinus rhythm Normal ECG No previous ECG available for comparison Electronically Signed On 10-01-24 10:49:11 CDT by Taj Wilson
== END 2024-09-30 11:30 | disposition home or self-care (01) | DRG 683 ==
LOC: ER 22:32 → ERHOLD 09-29 02:52 → 3RD-ICU 09-29 05:06 → 4TH 09-29 23:54
PROVIDERS: ADMIT Internal Medicine; ATTEND Internal Medicine
DX: N17.0 Acute kidney failure with tubular necrosis (principal); E87.20 Acidosis, unspecified; E86.0 Dehydration; E86.9 Volume depletion, unspecified; E78.5 Hyperlipidemia, unspecified; F10.10 Alcohol abuse, uncomplicated; I12.9 Hypertensive chronic kidney disease with stage 1 through stage 4 chronic kidney disease, or unspecified chronic kidney disease; N18.31 Chronic kidney disease, stage 3a; F17.220 Nicotine dependence, chewing tobacco, uncomplicated; Z90.5 Acquired absence of kidney; Z85.53 Personal history of malignant neoplasm of renal pelvis; Z79.899 Other long term (current) drug therapy
CPT/HCPCS: 36415; 70450; 71045; 71250; 74176; 76770; 80048; 80053; 80061; 80076; 81001; 82550; 82570; 83605; 83690; 83735; 83880; 84100; 84156; 84300; 84484; 85025; 85610; 87040; 87045; 87046; 87324; 89055; 93005; 96361; 96365; 99285; J1644; J3411; J7030